=== PATIENT | female | born 1990 | race Caucasian/White ===

== ENCOUNTER 2025-03-10 21:14 | Emergency (ER) | payer MEDICAID ==
[~2025-03-10] VITALS: Ht 160 cm; Wt 136.0 kg
[2025-03-10 21:39] VITALS: O2SAT 99
[2025-03-10 21:42] VITALS: BP 121/75; PULSE 89; RESP 18; TEMP 36.7; O2SAT 98
[2025-03-10 22:02] LABS: CLARITY URINE CLOUDY (CLEAR); COLOR URINE YELLOW (YELLOW); GLUCOSE URINE NEGATIVE (NEGATIVE); KETONES URINE NEGATIVE (NEGATIVE); LEUKOCYTE ESTERASE URINE 1+ (NEGATIVE); NITRITE URINE POSITIVE (NEGATIVE); OCCULT BLOOD URINE TRACE (NEGATIVE); PH URINE 8.0 (4.5-8.0); PROTEIN URINE NEGATIVE (NEGATIVE); SPECIFIC GRAVITY URINE 1.018 (1.005-1.030); UROBILINOGEN URINE 2.0 E.U./dL (0.2-1.0)
[2025-03-10 22:34] LABS: BACTERIA URINE 3+; SQUAMOUS EPITHELIAL CELL URINE 2+ /lpf (RARE/1+)
[2025-03-10 22:35] LABS: RBC URINE 0-2 /hpf (0-2)
[2025-03-11] MEDS ORDERED: NAPR-1176 MT (01:34)
[2025-03-11] MEDS ORDERED: LIDO-53 TP (01:34)
[2025-03-11] MEDS ORDERED: CEPH500C2 MT (01:34)
== END 2025-03-10 23:47 | disposition left against medical advice (07) ==
LOC: ER 21:14
DX: M54.50 Low back pain, unspecified (principal)
CPT/HCPCS: 81003; 81025; 99281

== ENCOUNTER 2025-03-11 00:21 | Emergency (ER) | payer MEDICAID ==
[~2025-03-11] VITALS: Ht 160 cm; Wt 136.0 kg
[2025-03-11 00:38] VITALS: O2SAT 99
[2025-03-11] MEDS: KETOROLAC 15MG/ML VIAL IM ONE (01:22)
[2025-03-11] MEDS: ONDANSETRON 4MG/5ML UDC PO ONE (01:22)
[2025-03-11] MEDS ORDERED: LIDO-53 TP (01:34)
[2025-03-11] MEDS ORDERED: NAPR-1176 MT (01:34)
[2025-03-11] MEDS ORDERED: CEPH500C2 MT (01:34)
[2025-03-11 01:45] VITALS: BP 124/81; PULSE 81; RESP 16; TEMP 36.7; O2SAT 99
== END 2025-03-11 01:49 | disposition home or self-care (01) ==
LOC: ER 00:33
DX: N39.0 Urinary tract infection, site not specified (principal); G89.29 Other chronic pain; M54.9 Dorsalgia, unspecified
CPT/HCPCS: 99283; 96372; J1885